=== PATIENT | female | born 1975 | race Caucasian/White ===

== ENCOUNTER 2021-02-14 06:55 | Emergency (ER) | payer BC ==
[~2021-02-14] VITALS: Ht 160 cm; Wt 66.0 kg
[2021-02-14] MEDS ORDERED: ketorolac trometh. 30mg/ml inj. IM ONE (07:25)
[2021-02-14 08:23] VITALS: BP 111/50
== END 2021-02-14 08:24 | disposition home or self-care (01) ==
LOC: ER 06:57
DX: M75.101 Unspecified rotator cuff tear or rupture of right shoulder, not specified as traumatic (principal); R55 Syncope and collapse; M25.511 Pain in right shoulder; R11.0 Nausea; R42 Dizziness and giddiness
CPT/HCPCS: 73030; 93005; 96372; 99283; J1885